=== PATIENT | male | born 1990 | race American Indian/Alaskan Native ===

== ENCOUNTER 2021-06-03 16:51 | Emergency (ER) | payer SELFPAY ==
--- NOTE | 2021-06-03 17:53 | XRay Report ---
Left hand, 3 views HISTORY: Laceration COMPARISON: None FINDINGS: No acute fracture or malalignment. Soft tissues are unremarkable by radiograph. No soft tis tiffany gas or radiopaque foreign body. Signer Name: Gautam Lerner MD Signed: 06/03/2021 5:49 PM Workstation Name: [id number]
[2021-06-03] MEDS ORDERED: TETANUS,DIPH,PERTUSS(ACELL) VACCINE 0.5 ML SYRINGE IM ONE (18:00)
[2021-06-03] MEDS ORDERED: LIDOCAINE (2%) 20 MG/1 ML VIAL 20 ML MDV INFILTRATI ONE (18:00)
[2021-06-03] MEDS ORDERED: HYDROcodone/ACETAMINOPHEN 10-325MG TAB PO ONE (18:26)
--- NOTE | 2021-06-03 20:14 | Emergency Department Report ---
ED Laceration HPI - HPI Chief Complaint: Extremity Injury, Upper Stated Complaint: HAND INJURY Time Seen by Provider: 06/03/21 17:09 Occurred When: Today Location: Upper Extremity Severity: mild Tetanus Status: Not up to Date Laceration Symptoms: Yes Pain, No Foreign Body Sensation, No Numbness, No Weakness Other History: This is a 30-year-old male nontoxic, well nourished in appearance, no acute signs of distress presents to the ED with c/o of left between 5th and 4th finger laceration and left palm hand that occurred today while at work prior to arrival. Stated he had a trip and a glass caused a laceration. Patient denies any other injuries or trauma. Patient denies decreased sensation or range of motion. Patient stated bleeding is under control. Denies any numbness, tingling, fever, chills, nausea, vomiting, chest pain, shortness of breath, headache or stiff neck. Patient denies any allergies to significant past medical history. Patient is that he is not up-to-date with tetanus. ED Review of Systems ROS: Stated complaint: HAND INJURY Other details as noted in HPI Comment: All other systems reviewed and negative Constitutional: denies: chills, fever Eyes: denies: eye pain, eye discharge, vision change ENT: denies: ear pain, throat pain Respiratory: denies: cough, shortness of breath, wheezing Cardiovascular: denies: chest pain, palpitations Endocrine: no symptoms reported Gastrointestinal: denies: abdominal pain, nausea, diarrhea Genitourinary: denies: urgency, dysuria Musculoskeletal: denies: back pain, joint swelling, arthralgia Skin: denies: rash, lesions Neurological: denies: headache, weakness, paresthesias Psychiatric: denies: anxiety, depression Hematological/Lymphatic: denies: easy bleeding, easy bruising ED Past Medical Hx - Past Medical History Previous Medical History?: Yes Additional medical history: RSD, NEUROPATHY - Surgical History Past Surgical History?: No - Medications Home Medications: Home Medications Medication Instructions Recorded Confirmed Last Taken Type Naproxen 500 mg PO Q12H PRN #12 tab 06/03/21 Unknown Rx Sulfamethoxazole/Trimethoprim 1 each PO BID #14 tab 06/03/21 Unknown Rx [Bactrim DS TAB] Laceration Physical Exam - Exam General: Vital signs noted. No distress. Alert and acting appropriately. Patient also has a 1 cm superficial laceration to the left proximal palm area. Physical exam does not show any foreign body to either lacerations. Wound Length (cm): 2 (Between fourth and fifth finger of left hand) Laceration Location: Upper Extremity Laceration Exam: Yes Normal Distal CMS, No Foreign Body, No Exposed Tendon, Vessel, or Nerve, No Tendon Injury ED Course Vital Signs 06/03/21 17:10 Temperature 97.9 F Pulse Rate 75 Respiratory 16 Rate Blood Pressure 101/65 [Right] O2 Sat by Pulse 100 Oximetry - Reevaluation(s) Reevaluation #1: 06/03/21 20:11 Patient is speaking in full sentences with no signs of distress noted. - Laceration /Wound Repair Left Hand Wound Location: upper extremity (left hand) Wound Length (cm): 2 Wound's Depth, Shape: superficial Wound Explored: clean Irrigated w/ Saline (ccs): 40 Betadine Prep?: Yes Volume Anesthetic (ccs): 3 (2% lidocaine plain) Wound Repaired With: sutures Suture Size/Type: 4:0, nylon Number of Sutures: 5 Layer Closure?: No Sterile Dressing Applied?: Yes Progress: Under sterile field, I used Betadine to clean the area. I then used 40 mL of normal saline to flush the area. I then used 2% lidocaine plain and injected 2 mL to the wound. I then used a 4-0 nylon to suture the laceration. Number of stitches 5 placed in between left fourth and fifth finger. I then used Dermabond to approximate the proximal palm laceration to the left hand. I then applied a sterile 4 x 4 with tape. Minimal bleeding noted but is under control. Patient tolerated procedure well with no signs of distress. ED Medical Decision Making - Radiology Data [facility] [address] [place] [address] XRay Report Signed Patient: MADHAVI ORELLANA MR#: [id number] 60 : 1990 Acct:[id number] Age/Sex: 30 / M ADM Date: 06/03/21 Loc: ED Attending Dr: Ordering Physician: RICHARD BRADLEY NP Date of Service: 06/03/21 Procedure(s): XR hand 3+V LT Accession Number(s): [id number] cc: RICHARD BRADLYE NP Fluoro Time In Minutes: Left hand, 3 views HISTORY: Laceration COMPARISON: None FINDINGS: No acute fracture or malalignment. Soft tissues are unremarkable by radiograph. No soft tissue gas or radiopaque foreign body. Signer Name: Demetri Lerner MD Signed: 06/03/2021 5:49 PM Workstation Name: [id number] Transcribed By: RASHMI Dictated By: DEMETRI LERNER MD Electronically Authenticated By: DEMETRI LERNER MD Signed Date/Time: 06/03/211748 DD/ 47 TD/TT: - Medical Decision Making This is a 30-year-old male that presents with laceration. Patient is stable and was examined by me. The laceration suturing has been performed and has been performed and patient tolerated well. A sterile dressing has been applied. Patient was educated on proper wound care. Patient is discharged with Keflex. Patient was instructed to return in 10 days for suture removal. Patient was instructed to refer to Follow-up with a primary care doctor in 3-5 days or if symptoms worsen and continue return to emergency room as soon as possible. At time of discharge, the patient does not seem toxic or ill in appearance. No acute signs of distress noted. Patient agrees to discharge treatment plan of care. No further questions noted by the patient. Critical care attestation.: If time is entered above; I have spent that time in minutes in the direct care of this critically ill patient, excluding procedure time. ED Disposition Clinical Impression: Laceration of left hand Qualifiers: Encounter type: initial encounter Foreign body presence: without foreign body Qualified Code(s): S61.412A - Laceration without foreign body of left hand, initial encounter Disposition: HOME / SELF CARE / HOMELESS Is pt being admited?: No Does the pt Need Aspirin: No Condition: Stable Instructions: Laceration Care, Adult Additional Instructions: Follow-up with a primary care doctor in 3-5 days or if symptoms worsen and continue return to emergency room as soon as possible. Return in 10 days for suture removal. No strenuous physical activity that extremity until sutures are removed and be assessed by a provider. Prescriptions: Sulfamethoxazole/Trimethoprim [Bactrim DS TAB] 1 each PO BID #14 tab Naproxen 500 mg PO Q12H PRN #12 tab PRN Reason: Pain , Severe (7-10) Referrals: PRIMARY CARE, [Primary Care Provider] - 3-5 Days MARV FAGAN MD [Staff Physician] - 3-5 Days Time of Disposition: 20:15
[2021-06-03 20:32] VITALS: BP 111/72
== END 2021-06-03 20:48 | disposition home or self-care (01) ==
LOC: ED 16:51
DX: S61.412A Laceration without foreign body of left hand, initial encounter (principal); X58.XXXA Exposure to other specified factors, initial encounter; Y93.89 Activity, other specified; Y92.89 Other specified places as the place of occurrence of the external cause; Y99.8 Other external cause status
CPT/HCPCS: 12001; 73130; 90471; 90715; 99283; J3490

== ENCOUNTER 2021-06-14 13:12 | Emergency (ER) | payer SELFPAY ==
[2021-06-14 14:20] VITALS: BP 107/65
[2021-06-14] MEDS ORDERED: IBUPROFEN 800 MG TAB PO STA (14:20)
--- NOTE | 2021-06-14 14:20 | Emergency Department Report ---
Suture/Staple Removal - HPI Chief Complaint: Laceration/Recheck/Suture Stated Complaint: SUTURE REMOVED Time Seen by Provider: 06/14/21 13:54 When Sutures or Lars Placed: 11-14 Days Ago Wound Location: left hand ED Review of Systems ROS: Stated complaint: SUTURE REMOVED Other details as noted in HPI Constitutional: denies: fever, malaise Musculoskeletal: denies: joint swelling, arthralgia Skin: denies: change in color ED Past Medical Hx - Past Medical History Additional medical history: RSD, NEUROPATHY - Medications Home Medications: Home Medications Medication Instructions Recorded Confirmed Last Taken Type Meloxicam [Mobic] 15 mg PO DAILY #30 06/03/21 Unknown Rx Sulfamethoxazole/Trimethoprim 1 each PO BID #14 tab 06/03/21 Unknown Rx [Bactrim DS TAB] Suture Removal Exam - Exam General: Vital signs noted. No distress. Alert and acting appropriately. Wound: No Pathologic Erythema, No Tenderness, No Drainage, No Pus, No Wound Dehiscence Other Systems: All other systems reviewed and are unremarkable. [address] 3 sutures removed, however there is mild wound dehiscence noted no purulent drainage noted minimal bleeding occurred ED Recheck MDM - Medical Decision Making Mild wound dehiscence noted with 3 sutures removed. Patient to return to ED in 5 days to have remaining sutures removed. Patient to apply Neosporin topically 3 times a day for the next 5 days. Discussed wound care and signs and symptoms that should prompt immediate return to the ED with patient who verbalizes understand Critical care attestation.: If time is entered above; I have spent that time in minutes in the direct care of this critically ill patient, excluding procedure time. ED Disposition Clinical Impression: Visit for suture removal Disposition: HOME / SELF CARE / HOMELESS Is pt being admited?: No Condition: Stable Instructions: Incision Care, Adult, [id number] Additional Instructions: Return to the emergency department in 5 days for suture removal
== END 2021-06-14 14:38 | disposition home or self-care (01) ==
LOC: ED 13:12
DX: S61.412D Laceration without foreign body of left hand, subsequent encounter (principal); Z88.0 Allergy status to penicillin; X58.XXXD Exposure to other specified factors, subsequent encounter
CPT/HCPCS: 99282